=== PATIENT | male | born 1995 | race Two or more races ===

== ENCOUNTER 2024-04-29 09:02 | Emergency (ER) | payer MEDICAID ==
[~2024-04-29] VITALS: Ht 162.6 cm; Wt 59.5 kg
[2024-04-29 10:06] VITALS: BP 129/72; TEMP 98.5
--- NOTE | 2024-04-29 10:18 | DVH ---
ULTRASOUND OF SCROTUM AND CONTENTS. INDICATION: RIGHT TESTICULAR PAIN COMPARISON: None TECHNIQUE: Multiple real-time grayscale sonographic and color and duplex Doppler images of the scrotu m and its contents were obtained. FINDINGS: The right testicle measures 3.8 x 2.3 x 2.7 cm. The left testicle measures by 2.1 x 2.6 cm. Both testicles demonstrate homogeneous echotexture without evidence of focal lesions. The right epididymis is heterogeneous and enlarged with hyperemia. Subsequent color and duplex Doppler interrogation of the testes demonstrated symmetric normal vascula r flow to both testicles. IMPRESSION: Findings suggestive of right epididymitis.
--- NOTE | 2024-04-29 10:36 | ED.PDOC ---
General HPI Comments 29 year old male presents to the ED with chief complaint of testicular pain. Patient reports that he has been experiencing right testicular pain and swelling for the past 3 days, worsening over time. Patient denies any injury, heavy lifting, dysuria, or hematuria. Chief Complaint: Testicle Pain Time Seen by MD: 10:30 Primary Care Provider: NONE Reviewed notes: Nurses Notes, Medications, Allergies Allergies: Coded Allergies: NO KNOWN ALLERGIES (Unverified , 02/20/23) Information Source: Patient Mode of Arrival: Ambulatory Severity: Moderate Timing: Days Duration: Since onset Prehospital treatment: None Onset: Spontaneous Symptoms: None History of: None Location male: R Scrotum Penile discharge: None Modifying factors: None Past Medical History PAST MEDICAL HISTORY: Denies Surgical History: Denies all surgeries Family History Family History: Reviewed,noncontributory to illness Social History Smoker: Non-Smoker Alcohol: Denies ETOH Use Drugs: Denies Drug Use Lives In: Home Constitutional: denies: chills, diaphoresis, fatigue, fever, malaise, sweats, weakness, others EENTM: denies: blurred vision, double vision, ear bleeding, ear discharge, ear drainage, ear pain, ear ringing, eye pain, eye redness, hearing loss, mouth pain, mouth swelling, nasal discharge, nose bleeding, nose congestion, nose pain, photophobia, tearing, throat pain, throat swelling, voice changes, others Respiratory: denies: cough, hemoptysis, orthopnea, SOB at rest, shortness of breath, SOB with excertion, stridor, wheezing, others Cardiovascular: denies: chest pain, dizzy spells, diaphoresis, Dyspnea on exertion, edema, irregular heart beat, left arm pain, lightheadedness, palpitations, PND, syncope, others Gastrointestinal: denies: abdomen distended, abdominal pain, blood streaked bowels, constipated, diarrhea, dysphagia, difficulty swallowing, hematemesis, melena, nausea, poor appetite, poor fluid intake, rectal bleeding, rectal pain, vomiting, others Genitourinary: reports: testicle pain, testicle swelling; denies: burning, dysuria, flank pain, frequency, hematuria, incontinence, penile discharge, penile sore, pain, urgency, others Neurological: denies: dizziness, fainting, headache, left sided numbness, left sided weakness, numbness, paresthesia, pre-existing deficit, right sided numbness, right sided weakness, seizure, speech problems, tingling, tremors, weakness, others Musculoskeletal: denies: back pain, gout, joint pain, joint swelling, muscle pain, muscle stiffness, neck pain, others Integumetry: denies: bruises, change in color, change in hair/nails, dryness, laceration, lesions, lumps, rash, wounds, others Allergic/Immunocompromised: denies: Difficulty Healing, Frequent Infections, Hives, Itching, others Hematologic/Lymphatic: denies: anemia, blood clots, easy bleeding, easy bruising, swollen glands, others Endocrine: denies: excessive hunger, excessive sweating, excessive thirst, excessive urination, flushing, intolerance to cold, intolerance to heat, unexplained weight gain, unexplained weight loss, others Psychiatric: denies: anxiety, bipolar disorder, depression, hopeless, panic disorder, schizophrenia, sleepless, suicidal, others All Other Systems: Reviewed and Negative Physical Exam General Appearance: Moderate Distress, Normal HEENT: Normal ENT Inspection, PERRL/EOMI Neck: Full Range of Motion, Non-Tender, Normal, Normal Inspection Respiratory: Chest Non-Tender, Lungs Clear, No Accessory Muscle Use, No Respiratory Distress, Normal Breath Sounds Cardiovascular: No Edema, No JVD, No Murmur, No Gallop, Normal Peripheral Pulses, Regular Rate/Rhythm Breast Exam: Deferred Gastrointestinal: No Organomegaly, Non Tender, No Pulsatile Mass, Normal Bowel Sounds, Soft Genitalia: Deferred Pelvic: Deferred Rectal: Deferred Extremities: No calf tenderness, Normal capillary refill, Normal inspection, Normal range of motion, Non-tender, No pedal edema Musculoskeletal : Apperance: Normal Neurologic: Alert, front end application developer II-XII nml as Tested, No Motor Deficits, Normal Affect, Normal Mood, No Sensory Deficits Cerebellar Function: Normal Reflexes: Normal Skin: Dry, Normal Color, Warm Peripheral Pulses: 3+ Radial (R), 3+ Radial (L) Lymphatic: No Adenopathy Was a procedure done? Was a procedure done?: No Differential Diagnosis Kidney stone (Female): Musculoskeletal pain, Urinary obstruction, Urolithiasis X-Ray, Labs, Meds, VS Vital Signs Date Time Temp Pulse Resp B/P (MAP) Pulse Ox O2 Delivery O2 Flow Rate FiO2 04/29/24 10:06 66 17 96 Room Air 04/29/24 10:06 98.5 66 17 129/72 (91) 96 98.5 04/29/24 09:14 98.7 85 16 136/98 (111) 99 Testicle US: FINDINGS: The right testicle measures 3.8 x 2.3 x 2.7 cm. The left testicle measures by 2.1 x 2.6 cm. Both testicles demonstrate homogeneous echotexture without evidence of focal lesions. The right epididymis is heterogeneous and enlarged with hyperemia. Subsequent color and duplex Doppler interrogation of the testes demonstrated symmetric normal vascular flow to both testicles. IMPRESSION: Findings suggestive of right epididymitis. Patient alert. Complaining of testicular pain. Vitals stable. No trauma. Answering questions. Ultrasound does reveal epididymitis. Was given prescription of amoxicillin antibiotic. Explained to the patient. Was told to follow up with his primary care physician. Was told to come back if there is any problem. Images Reviewed?: Images reviewed and evaluated by me Time of 1ST Reevaluation: 11:30 Reevaluation 1ST: Improved Patient Education/Counseling: Diagnosis, Treatment Family Education/Counseling: No Family Present Departure 1 Departure Time of Disposition: 10:59 Impression: Primary Impression: Epididymitis Disposition: 01 HOME / SELF CARE / HOMELESS Condition: Good e-Prescriptions Ibuprofen Micronized (MOTRIN TABLET) 600 Mg Tb 600 MG PO TID PRN for 3 Days, #9 TAB *Black box warning-NSAIDS can increase risk of [place] & hypertension, GI irritation, ulceration, bleed, perferation. Do not use post cardiac surgery. Use short duration/lowest effective dose. Prov: OLIVIA RODRIGUEZ MD 04/29/24 Amoxicillin Trihydrate (Amoxicillin) 500 Mg Cap 1 CAP PO TID for 7 Days, #21 CAP Prov: OLIVIA RODRIGUEZ MD 04/29/24 Discharged With: Self Critical Care Note Critical Care Time?: No Stability Stability form required: No Heart Score Heart Score: Heart Score Response (Comments) Value History N/A 0 EKG N/A 0 Age N/A 0 Risk Factors N/A 0 Troponin N/A 0 Total 0 I personally scribed for OLIVIA RODRIGUEZ MD ([email or web address]) on 04/29/24 at 10:36. Electronically submitted by Mehran Lamb ([email or web address]). I personally scribed for OLIVIA RODRIGUEZ MD ([email or web address]) on 04/29/24 at 10:39. Electronically submitted by Mehran Lamb ([email or web address]). OLIVIA RODRIGUEZ MD Apr 29, 2024 10:36
[2024-04-29] MEDS ORDERED: AMOX500C2 PO (10:59)
[2024-04-29] MEDS ORDERED: IBU600T PO (11:00)
[2024-04-29 11:07] VITALS: PULSE 74; RESP 14; O2SAT 98
[2024-04-29] MEDS: AMOXICILLIN TRIHYDRATE 250 MG CAP PO ONE (11:12)
[2024-04-29] MEDS: HYDROcodone-ACET 5/325MG TAB PO ONE (11:12)
== END 2024-04-29 11:14 | disposition home or self-care (01) ==
LOC: ER 09:02
DX: N45.1 Epididymitis (principal)
CPT/HCPCS: 76870